=== PATIENT | male | born 1960 | race Caucasian/White ===

== ENCOUNTER 2017-10-23 14:45 | Inpatient (IN) | payer MEDICAID ==
[~2017-10-23] VITALS: Ht 177.8 cm; Wt 92.3 kg
[2017-10-23 15:39] LABS: Basophils # (auto) 0.1 uL; Eosinophils # (auto) 0 uL; Hemoglobin 13.3 g/dL (13.5-17.5); Monocytes # (auto) 0.9 uL; Platelet Count (auto) 80 10^3/uL (140-450); White Blood Cell 9.8 10^3/uL (4.4-10.8)
[2017-10-23 15:41] LABS: Basophils % (auto) 0.7 % (0.0-2.0); Hematocrit 38.4 % (41.0-53.0); Lymphocytes # (auto) 0.6 uL; Lymphocytes % (auto) 6.6 % (10.0-50.0); Mean Corpuscular Hemoglobin 37.1 pg (28.0-32.0); Mean Corpuscular Hgb Conc. 34.7 g/dL (32.0-36.0); Mean Corpuscular Volume 106.9 fL (80.0-100.0); Neutrophils # (auto) 8.2 uL; Neutrophils % (auto) 83.7 % (37.0-80.0); Red Cell Distribution Width 14.5 % (11.8-14.3)
[2017-10-23 15:59] LABS: Alanine Aminotransferase 34 U/L (16-61); Albumin 2.9 g/dL (3.4-5.0); Alkaline Phosphatase 196 U/L (45-117); Anion Gap 7 (5-15); Aspartate Aminotransferase 63 U/L (15-37); BUN/Creatinine Ratio 26.1; Bilirubin, Total 4.9 mg/dL (0.2-1.0); Blood Urea Nitrogen 23 mg/dL (7-18); Calcium 8.1 mg/dL (8.5-10.1); Carbon Dioxide 26 mmol/L (21-32); Chloride 105 mmol/L (98-107); GFR African American 114 mL/min; GFR Non-African American 95 mL/min; Glucose 173 mg/dL (74-106); Potassium 4.1 mmol/L (3.5-5.1); Sodium 138 mmol/L (136-145); Total Protein 7.3 g/dL (6.4-8.2)
[2017-10-23] MEDS ORDERED: ONDANSETRON HCL 4 MG/2 ML VIAL IV ONE (20:45)
[2017-10-23] MEDS ORDERED: PANTOPRAZOLE 40 MG/10 ML VIAL IV ONE (21:00)
[2017-10-23] MEDS ORDERED: MORPHINE SULF INJ 2 MG/ML SYRINGE 1ML IV PRN (21:15)
[2017-10-23] MEDS ORDERED: ONDANSETRON HCL 4 MG/2 ML VIAL IV PRN (21:15)
[2017-10-23] MEDS ORDERED: chlordiazePOXIDE HCL 25 MG CAP PO PRN (21:15)
[2017-10-23 21:25] LABS: Amylase 63 U/L (25-115); Lipase 121 U/L (73-393)
[2017-10-23] MEDS ORDERED: THIAMINE HCL 100 MG TAB PO ONE (21:30)
[2017-10-23] MEDS ORDERED: FOLIC ACID 1 MG TAB PO ONE (21:30)
[2017-10-23] MEDS: PANTOPRAZOLE 40 MG/10 ML VIAL IV SCH (21:59)
[2017-10-23 22:00] LABS: Urine Bacteria FEW /hpf (None Seen); Urine Blood Negative /uL (Negative); Urine Hyaline Cast FEW /lpf (0 - 2); Urine Mucus FEW (None Seen); Urine Specific Gravity 1.029 (1.001-1.035); Urine WBC 1 /hpf (0 - 3)
[2017-10-23 22:17] VITALS: BP 119/62
[2017-10-24 00:04] LABS: Hematocrit 35.4 % (41.0-53.0); Hemoglobin 11.8 g/dL (13.5-17.5)
[2017-10-24 05:00] VITALS: BP 109/57
[2017-10-24 09:05] LABS: Basophils # (auto) 0.1 uL; Basophils % (auto) 0.9 % (0.0-2.0); Eosinophils # (auto) 0.1 uL; Eosinophils % (auto) 0.7 % (0.0-7.0); Hematocrit 33.1 % (41.0-53.0); Hemoglobin 11.3 g/dL (13.5-17.5); Lymphocytes # (auto) 2.4 uL; Lymphocytes % (auto) 20.6 % (10.0-50.0); Mean Corpuscular Hgb Conc. 34.2 g/dL (32.0-36.0); Monocytes # (auto) 1.2 uL; Monocytes % (auto) 10.4 % (0.0-12.0); Neutrophils # (auto) 7.8 uL; Neutrophils % (auto) 67.4 % (37.0-80.0); Nucleated Red Blood Cells % 0.1 %; Platelet Count (auto) 90 10^3/uL (140-450); Red Blood Cells 3.07 10^6/uL (4.5-5.90); Red Cell Distribution Width 14.3 % (11.8-14.3); White Blood Cell 11.6 10^3/uL (4.4-10.8)
[2017-10-24 09:11] VITALS: BP 115/65
[2017-10-24] MEDS: PANTOPRAZOLE 40 MG/10 ML VIAL IV SCH ×2 (09:16→22:18)
[2017-10-24] MEDS: FOLIC ACID 1 MG TAB PO SCH (09:16)
[2017-10-24] MEDS: THIAMINE HCL 100 MG TAB PO SCH (09:17)
[2017-10-24 09:29] LABS: Albumin 2.8 g/dL (3.4-5.0); Bilirubin, Total 3.5 mg/dL (0.2-1.0); Calcium 8.3 mg/dL (8.5-10.1); Potassium 3.5 mmol/L (3.5-5.1); Total Protein 6.5 g/dL (6.4-8.2)
[2017-10-24] MEDS ORDERED: OCTREOTIDE ACETATE 100 MCG in SODIUM CHL 0.9% 50 ML IV ONE (11:15)
[2017-10-24 12:41] LABS: INR 1.31 (0.9-1.15); Prothrombin Time 13.8 sec (9.27-12.13)
[2017-10-24 13:00] VITALS: BP 98/56
[2017-10-24] MEDS: OCTREOTIDE ACETATE 500 MCG in SODIUM CHL 0.9% 99 ML IV SCH (13:05)
[2017-10-24 13:41] LABS: Hepatitis B Core Total AB Negative; Hepatitis B Surface Antigen Negative (Negative); Hepatitis C Antibody Negative (Negative)
[2017-10-24 17:13] VITALS: BP 96/59
[2017-10-24 22:00] VITALS: BP 88/48
[2017-10-25] MEDS: OCTREOTIDE ACETATE 500 MCG in SODIUM CHL 0.9% 99 ML IV SCH ×3 (01:27→18:04)
[2017-10-25 05:00] VITALS: BP 93/41
[2017-10-25 08:27] VITALS: BP 95/53
[2017-10-25] MEDS ORDERED: LIDOCAINE VISCOUS 2% 15ML UD ONE (08:28)
[2017-10-25] MEDS ORDERED: diphenhdrAMINE HCL 50 MG/1 ML VL ONE (08:29)
[2017-10-25] MEDS: PANTOPRAZOLE 40 MG/10 ML VIAL IV SCH ×2 (10:00→22:22)
[2017-10-25] MEDS: THIAMINE HCL 100 MG TAB PO SCH (10:00)
[2017-10-25] MEDS: FOLIC ACID 1 MG TAB PO SCH (10:00)
[2017-10-25 12:35] VITALS: BP 94/44
[2017-10-25] MEDS: MIDAZOLAM HCL 5 MG/ML-1ML VIAL ONE ×3 (14:18→14:25)
[2017-10-25] MEDS: fentaNYL CITRATE 100 MCG/2 ML VL ONE ×3 (14:18→14:25)
[2017-10-25 17:18] VITALS: BP 102/58
[2017-10-25 21:55] VITALS: BP 102/57
[2017-10-26] MEDS: OCTREOTIDE ACETATE 500 MCG in SODIUM CHL 0.9% 99 ML IV SCH (03:15)
[2017-10-26 05:33] VITALS: BP 102/61
[2017-10-26 06:00] LABS: Basophils # (auto) 0.1 uL; Eosinophils # (auto) 0.1 uL; Eosinophils % (auto) 2.1 % (0.0-7.0); Hemoglobin 10.1 g/dL (13.5-17.5); Lymphocytes # (auto) 1.5 uL; Lymphocytes % (auto) 22.5 % (10.0-50.0); Monocytes # (auto) 0.7 uL; Nucleated Red Blood Cells % 0.1 %
[2017-10-26 06:02] LABS: Basophils % (auto) 0.9 % (0.0-2.0); Hematocrit 29.5 % (41.0-53.0); Mean Corpuscular Hemoglobin 37.2 pg (28.0-32.0); Mean Corpuscular Hgb Conc. 34.2 g/dL (32.0-36.0); Mean Corpuscular Volume 108.7 fL (80.0-100.0); Monocytes % (auto) 10.6 % (0.0-12.0); Neutrophils # (auto) 4.1 uL; Neutrophils % (auto) 63.9 % (37.0-80.0); Platelet Count (auto) 70 10^3/uL (140-450); Red Blood Cells 2.71 10^6/uL (4.5-5.90); Red Cell Distribution Width 14.2 % (11.8-14.3); White Blood Cell 6.4 10^3/uL (4.4-10.8)
[2017-10-26 06:21] LABS: Albumin 2.5 g/dL (3.4-5.0); Calcium 7.2 mg/dL (8.5-10.1); Potassium 3.8 mmol/L (3.5-5.1)
[2017-10-26 06:24] LABS: BUN/Creatinine Ratio 21.7
[2017-10-26 06:26] LABS: Bilirubin, Total 3.8 mg/dL (0.2-1.0); Total Protein 5.8 g/dL (6.4-8.2)
[2017-10-26 08:49] VITALS: BP 108/59
[2017-10-26] MEDS: PANTOPRAZOLE 40 MG/10 ML VIAL IV SCH ×2 (09:54→21:28)
[2017-10-26] MEDS: THIAMINE HCL 100 MG TAB PO SCH (09:54)
[2017-10-26] MEDS: FOLIC ACID 1 MG TAB PO SCH (09:54)
[2017-10-26 12:37] VITALS: BP 100/60
[2017-10-26] MEDS: MEPERIDINE HCL (50 MG/ML) 1 ML VIAL IV PRN ×2 (12:55→17:05)
[2017-10-26 17:00] VITALS: BP 115/65
[2017-10-26] MEDS: Glucerna Carbsteady SHAKE Vanilla 8oz PO SCH (18:00)
[2017-10-26 22:11] VITALS: BP 109/64
[2017-10-27 04:45] VITALS: BP 108/56
[2017-10-27 05:25] LABS: Basophils # (auto) 0.1 uL; Eosinophils # (auto) 0.2 uL; Hemoglobin 10.5 g/dL (13.5-17.5); Mean Corpuscular Hgb Conc. 33.6 g/dL (32.0-36.0); Monocytes # (auto) 0.9 uL; Platelet Count (auto) 70 10^3/uL (140-450)
[2017-10-27 05:27] LABS: Basophils % (auto) 0.9 % (0.0-2.0); Eosinophils % (auto) 2.4 % (0.0-7.0); Hematocrit 31.1 % (41.0-53.0); Mean Corpuscular Hemoglobin 36.6 pg (28.0-32.0); Mean Corpuscular Volume 108.9 fL (80.0-100.0); Neutrophils # (auto) 4.2 uL; Neutrophils % (auto) 57.7 % (37.0-80.0); Red Blood Cells 2.86 10^6/uL (4.5-5.90); Red Cell Distribution Width 14.4 % (11.8-14.3); White Blood Cell 7.2 10^3/uL (4.4-10.8)
[2017-10-27 05:30] LABS: BUN/Creatinine Ratio 18.3; Calcium 7.7 mg/dL (8.5-10.1); Potassium 4.2 mmol/L (3.5-5.1)
[2017-10-27] MEDS: MEPERIDINE HCL (50 MG/ML) 1 ML VIAL IV PRN ×4 (07:15→15:30)
[2017-10-27] MEDS: Glucerna Carbsteady SHAKE Vanilla 8oz PO SCH ×2 (08:00→12:00)
[2017-10-27] MEDS ORDERED: HYDROcodone-ACET 10/325MG TAB PO PRN (08:15)
[2017-10-27 08:21] VITALS: BP 98/58
[2017-10-27] MEDS: PANTOPRAZOLE 40 MG/10 ML VIAL IV SCH (09:03)
[2017-10-27] MEDS: FOLIC ACID 1 MG TAB PO SCH (09:03)
[2017-10-27] MEDS: THIAMINE HCL 100 MG TAB PO SCH (09:04)
[2017-10-27 12:10] VITALS: BP 109/60
== END 2017-10-27 16:30 | disposition home or self-care (01) | DRG 241 ==
LOC: ER 14:45 → EDSEX 14:45 → WEST WING 14:46
PROVIDERS: ADMIT Nurse Practitioner; ATTEND Internal Medicine
PROC: 06L38CZ Occlusion of Esophageal Vein with Extraluminal Device, Via Natural or Artificial Opening Endoscopic (ICD-10-PCS; principal; 2017-10-25 14:16)
DX: K29.81 Duodenitis with bleeding (principal); D69.6 Thrombocytopenia, unspecified; K76.6 Portal hypertension; E44.0 Moderate protein-calorie malnutrition; K70.30 Alcoholic cirrhosis of liver without ascites; I85.01 Esophageal varices with bleeding; E11.9 Type 2 diabetes mellitus without complications; K76.0 Fatty (change of) liver, not elsewhere classified; K31.89 Other diseases of stomach and duodenum; F17.210 Nicotine dependence, cigarettes, uncomplicated; Z68.29 Body mass index [BMI] 29.0-29.9, adult; Z82.49 Family history of ischemic heart disease and other diseases of the circulatory system
CPT/HCPCS: 36415; 43244; 71045; 74176; 80048; 80053; 81001; 82150; 83036; 83690; 84484; 85014; 85018; 85025; 85610; 86704; 86706; 86803; 86850; 86900; 86901; 87340; 93005; 94761; 96374; 96375; A6257; C9113; J2250; J2405